=== PATIENT | female | born 1960 | race Caucasian/White ===

== ENCOUNTER 2019-11-28 13:48 | Emergency (ER) | payer MEDICAID, OTHER, SELFPAY ==
[~2019-11-28] VITALS: Ht 162.6 cm; Wt 84.0 kg
--- NOTE | 2019-11-28 14:38 | NUR ---
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
--- NOTE | 2019-11-28 14:56 | NUR ---
placed on monitor, pt A&ox3, speech clear, skin yellow and intact, urine sample @ bedside
[2019-11-28] MEDS ORDERED: SODIUM CHLORIDE FLUSH 10ML SYR IVF ONE (15:30)
[2019-11-28 15:39] LABS: ALANINE AMINOTRANSFERASE 409 U/L (12-78); ALBUMIN 2.3 g/dL (3.4-5.0); ANION GAP 9 mmol/L (5-15); CALCIUM 8.6 mg/dL (8.5-10.1); CHLORIDE 101 mmol/L (98-107)
[2019-11-28 15:52] LABS: ALKALINE PHOSPHATASE 1525 U/L (45-117)
[2019-11-28 15:55] LABS: MEAN CORPUSCULAR HEMOGLOBIN 30.7 pg (27.0-34.8); MEAN CORPUSCULAR HGB CONC 33.3 g/dL (32.4-35.8); MEAN CORPUSCULAR VOLUME 92.2 fL (80-100); MEAN PLATELET VOLUME 10.3 fL (7.4-10.4); PLATELET COUNT 358 x10^3/uL (130-400); RED BLOOD COUNT 4.17 x10^6/uL (3.82-5.3); RED CELL DISTRIBUTION WIDTH 18.4 % (9.6-15.2)
--- NOTE | 2019-11-28 15:55 | NUR ---
URINE SAMPLE SENT, IC STARTED TO LEFT FOREARM, U/S @ BEDSIDE
[2019-11-28 15:56] LABS: CREATININE 0.74 mg/dL (0.55-1.02); MD YES
[2019-11-28 15:57] LABS: TOTAL PROTEIN 6.2 g/dL (6.4-8.2)
[2019-11-28 15:58] LABS: BILIRUBIN,TOTAL 24.7 mg/dL (0.2-1.0)
[2019-11-28 16:05] LABS: INTERNATIONAL NORMALIZED RATIO 1.13 (0.93-1.1)
[2019-11-28 16:18] LABS: MICROSCOPIC INDICATED
[2019-11-28 16:19] LABS: CULTURE INDICATED? YES
[2019-11-28 16:46] LABS: BAND#(MANUAL) 0.21 x10^3/uL; BANDS%(MANUAL) 2 % (0-7); BASOS#(MANUAL) 0.11 x10^3/uL (0-0.1); BASOS% (MANUAL) 1 % (0-1); EOS#(MANUAL) 0.11 x10^3/uL (0.0-0.4); EOS% (MANUAL) 1 % (1-7); LYMPH#(MANUAL) 2.94 x10^3/uL (1-3.4); LYMPHS% (MANUAL) 28 % (22-44); MONOS#(MANUAL) 0.63 x10^3/uL (0.3-2.7); MONOS% (MANUAL) 6 % (2-9); SEG#(MANUAL) 6.51 x10^3/uL (1.8-6.8); SEGS% (MANUAL) 62 % (42-75)
[2019-11-28 16:47] LABS: ANISOCYTOSIS 1+; POLYCHROMASIA 1+
[2019-11-28 16:48] LABS: <PLATELET ESTIMATE> ADEQUATE; <PLT MORPHOLOGY> NORMAL PLT MORPH; TARGET CELLS 1+
[2019-11-28] MEDS ORDERED: OMNIPAQUE 350 MG/ML, 100ML BOTTLE ONE (17:20)
--- NOTE | 2019-11-28 18:34 | NUR ---
DR Cadena @ bedside with pt
[2019-11-28] MEDS ORDERED: POTASSIUM CHLORIDE 20 MEQ TAB.ER.PRT ONE (18:44)
[2019-11-28] MEDS ORDERED: POTASSIUM CHLORIDE 20 MEQ TAB.ER.PRT PO ONE (19:00)
[2019-11-28 19:09] VITALS: BP 119/80
== END 2019-11-28 19:13 | disposition left against medical advice (07) ==
LOC: ED 19:00
DX: N30.00 Acute cystitis without hematuria (principal); R10.12 Left upper quadrant pain; E80.6 Other disorders of bilirubin metabolism; E87.6 Hypokalemia; K83.1 Obstruction of bile duct; F17.200 Nicotine dependence, unspecified, uncomplicated
CPT/HCPCS: 36415; 74177; 76700; 80053; 81001; 83605; 83690; 85025; 85610; 85730; 87077; 87086; 87186; 99285; Q9967

== ENCOUNTER 2019-12-02 11:17 | Inpatient (IN) | payer MEDICAID ==
[~2019-12-02] VITALS: Ht 162.6 cm; Wt 90.1 kg
[2019-12-02 12:06] LABS: MEAN CORPUSCULAR HEMOGLOBIN 31.2 pg (27.0-34.8); MEAN CORPUSCULAR HGB CONC 34.5 g/dL (32.4-35.8); MEAN CORPUSCULAR VOLUME 90.3 fL (80-100); MEAN PLATELET VOLUME 9.9 fL (7.4-10.4); PLATELET COUNT 412 x10^3/uL (130-400); RED BLOOD COUNT 3.99 x10^6/uL (3.82-5.3); RED CELL DISTRIBUTION WIDTH 19.4 % (9.6-15.2)
[2019-12-02 12:08] LABS: MD YES
[2019-12-02 12:14] LABS: ALANINE AMINOTRANSFERASE 338 U/L (12-78); ALBUMIN 2.3 g/dL (3.4-5.0); ANION GAP 11 mmol/L (5-15); CALCIUM 8.5 mg/dL (8.5-10.1); CHLORIDE 96 mmol/L (98-107)
[2019-12-02 12:27] LABS: ALKALINE PHOSPHATASE 1608 U/L (45-117)
[2019-12-02 12:28] LABS: CREATININE 0.73 mg/dL (0.55-1.02)
[2019-12-02 12:34] LABS: BILIRUBIN,TOTAL 28.7 mg/dL (0.2-1.0)
[2019-12-02 12:41] LABS: TOTAL PROTEIN 6.3 g/dL (6.4-8.2)
[2019-12-02 12:45] LABS: MICROSCOPIC INDICATED
[2019-12-02 12:48] LABS: LYMPH#(MANUAL) 1.68 x10^3/uL (1-3.4); LYMPHS% (MANUAL) 20 % (22-44); MONOS#(MANUAL) 0.76 x10^3/uL (0.3-2.7); MONOS% (MANUAL) 9 % (2-9); SEG#(MANUAL) 5.96 x10^3/uL (1.8-6.8); SEGS% (MANUAL) 71 % (42-75)
[2019-12-02 12:48] LABS: CULTURE INDICATED? YES
--- NOTE | 2019-12-02 12:49 | NUR ---
PT AMBULATED TO ROOM 20 PER PEDIS WITH STRONG STEADY GAIT. PT IS A/O X4. PT WAS HERE ON SUNDAY FOR WORK UP DUE TO WAKING UP "YELLOW". PT SKIN AND SCLERA ARE YELLOW. PT WAS INFORMED OF NEEDING TO BE ADMITTED TO RECEIVE A PANCREATIC STENT. PT LEFT AMA DUE TO HAVING THINGS TO DO. PT RETURNS TODAY TO HAVE STENT PLACED. PT AMBULATED TO TO OBTAIN UA, UNABLE TO PRODUCE ENOUGH URINE FOR TRANSFER TO TUBES, SO CUP LABELED AND WALKED TO LAB FOR TESTING. URINE VERY DARK YELLOW. PT STATES "MY STOOLS ARE WHITE, AND MY URINE USUALLY LOOKS LIKE COFFEE". PT C/O RIGHT FLANK AND ABDOMINAL PAIN RATING A 6/10. STATES "IT FEELS LIKE A KIDNEY PROBLEM".
[2019-12-02 12:50] LABS: ANISOCYTOSIS 1+; POLYCHROMASIA 1+
[2019-12-02 12:51] LABS: <PLATELET ESTIMATE> INCREASED; <PLT MORPHOLOGY> NORMAL PLT MORPH; TARGET CELLS 1+
[2019-12-02] MEDS ORDERED: POTASSIUM CHLORIDE 40 MEQ in SODIUM CHLORIDE 0.9% 500 ML IV ONE (13:00)
[2019-12-02] MEDS ORDERED: POTASSIUM CHLORIDE 20 MEQ TAB.ER.PRT PO ONE (13:00)
[2019-12-02] MEDS ORDERED: SODIUM CHLORIDE FLUSH 10ML SYR IVF ONE (13:00)
[2019-12-02] MEDS ORDERED: NITR100C56 PO (13:08)
[2019-12-02] MEDS ORDERED: POTASSIUM CHLORIDE 20 MEQ TAB.ER.PRT ONE (13:21)
--- NOTE | 2019-12-02 13:30 | NUR ---
PT KULDIP RESTING ON GURNEY. NAD NOTED. SKIN JAUNDICED, WARM AND DRY. RESP EVEN AND UNLABORED. PT AWARE THAT SHE IS WAITING FOR ADMISSION. PT ON CONT BP, CARDIAC AND O2 MONITORS. CALL LIGHT WITHIN REACH. WILL CONT TO MONITOR PT.
[2019-12-02] MEDS ORDERED: ONDANSETRON 2MG/ML, 2ML IVPush PRN (14:00)
[2019-12-02] MEDS ORDERED: hydrALAzine 20 MG/ML, 1ML IVPush PRN (14:00)
[2019-12-02] MEDS ORDERED: ONDANSETRON ODT 4 MG PO PRN (14:00)
[2019-12-02] MEDS ORDERED: morphine SULFATE 10 MG/ML, 1ML IVPush PRN (14:00)
[2019-12-02] MEDS ORDERED: BACLOFEN 10 MG TABLET PO PRN (14:00)
[2019-12-02] MEDS ORDERED: HYDROcodone/APAP 5/325 TABLET PO PRN (14:00)
--- NOTE | 2019-12-02 15:07 | NUR ---
PT UP TO RESTROOM. STEADY UPON AMBULATION TO RESTROOM AND BACK TO [facility]. PT AO X 4. SKIN JAUNDICED, WARM AND DRY. PT NSR 70'S ON LAST PICKER. PT ON CONT BP, CARDIAC AND O2 MONITORS. CALL LIGHT WITHIN REACH. WILL CONT TO MONITOR PT.
--- NOTE | 2019-12-02 15:11 | NUR ---
GI procedure already scheduled 11:[address] Lo
--- NOTE | 2019-12-02 15:30 | NUR ---
PT C/O BURNING TO IV SITE. DISCUSSED WITH ERMD AND A SMALL AMOUNT OF NS RUN AT TKO WITH POTASSIUM AND DRIP SLOWED TO 120 CC/HR. PT AO X 4. SKIN JAUNDICED, WARM AND DRY. RESP EVEN AND UNLABORED. CALL LIGHT WITHIN REACH. WILL CONT TO MONITOR PT.
--- NOTE | 2019-12-02 16:09 | NUR ---
PROCEDURE MOVED TO 12/[address] AT [address] BORRERO NOTIFIED.
[2019-12-02] MEDS ORDERED: NS + 20MEQ KCL 1,000 ML IV ONE (17:07)
--- NOTE | 2019-12-02 17:09 | NUR ---
PT UP TO RESTROOM. STEADY UPON AMBULATION TO AND FROM RESTROOM. PT PROVIDED WITH CLEAR LIQUID TRAY. PT AO X 4. SKIN JAUNDICED, WARM AND DRY. RESP EVEN AND UNALBORED. CALL LIGHT WITHIN REACH. WILL CONT TO MOTNIOR PT.
[2019-12-02] MEDS: NS + 20MEQ KCL 1,000 ML IV SCH (17:27)
--- NOTE | 2019-12-02 17:29 | NUR ---
PT PROVIDED WITH CRACKERS PER LUIS GUPTA'S ORDERS. PT ALLOWED TO HAVE CLEAR LIQUIDS AND SALTINES PER DR. GUPTA AND TO NPO AT MIDNIGHT. PT AO X 4. SKIN JAUNDICED WARM AND DRY. RESP EVEN AND UNLABORED. PT ON CONT BP, CARDIAC AND O2 MONITORS. CALL LIGHT WITHIN REACH. WILL CONT TO MONITO RPT.
--- NOTE | 2019-12-02 18:38 | NUR ---
PT UP TO CHAIR SO RN COULD SWITCH PATIENT TO A HOSPITAL BED. PT STATES "IT FEELS SO GOOD TO GET UP." PT BACK IN BED. INSTRUCTIONS ON HOW BED OPERATES. MONITORS REATTACHED. PT ATTEMPTING TO GET SOME SLEEP. PT STATES "I CAN'T WAIT UNTIL TOMORROW SO I CAN HAVE SOME REAL FOOD. CLEAR LIQUIDS IS FOR THE BIRDS." WILL CONTINUE TO MONITOR PATIENT.
--- NOTE | 2019-12-02 19:30 | NUR ---
PT CURRENTLY RESTING ON BOBBY. NAD NOTED. SKIN JAUNDICED, WARM AND DRY. RESP EVEN AND UNLABORED. CALL LIGHT WITHIN REACH. WILL CONT TO MONITOR PT.
[2019-12-02 19:53] LABS: ANION GAP 9 mmol/L (5-15); CALCIUM 8.3 mg/dL (8.5-10.1); CHLORIDE 104 mmol/L (98-107)
[2019-12-02 20:02] LABS: CREATININE 0.71 mg/dL (0.55-1.02)
--- NOTE | 2019-12-02 20:40 | NUR ---
PT UP TO RESTROOM. STEADY UPON AMBULATION TO RESTROOM AND BACK TO [facility]. PT AO X 4. SKIN JAUNDICED, WARM AND DRY. RESP EVEN AND UNLABORED. PT DENIES PAIN/NEEDS AT THIS TIME. PT ON CONT BP, CARDIAC AND O2 MONITORS. CALL LIGHT WITHIN REACH. WILL CONT TO MONITOR PT.
--- NOTE | 2019-12-02 21:44 | NUR ---
REPORT GIVEN TO RN ON MED/TELE. PT CURRENTLY DOZING ON BOBBY. NAD NOTED. SKIN JAUNDICED, WARM AND DRY. RESP EVEN AND UNALBORED.
[2019-12-02 22:24] VITALS: BP 131/70
[2019-12-03 01:00] VITALS: BP 154/68
[2019-12-03] MEDS: NS + 20MEQ KCL 1,000 ML IV SCH ×2 (03:37→16:00)
[2019-12-03 06:43] VITALS: BP 149/84
[2019-12-03] MEDS: BENZONATATE 100 MG CAPSULE PO SCH ×3 (08:57→19:54)
[2019-12-03] MEDS: CEFTRIAXONE PMX 1GM/50ML 50 ML IV SCH (09:13)
[2019-12-03 10:34] LABS: MEAN CORPUSCULAR HEMOGLOBIN 31.3 pg (27.0-34.8); MEAN CORPUSCULAR HGB CONC 34.6 g/dL (32.4-35.8); MEAN CORPUSCULAR VOLUME 90.5 fL (80-100); MEAN PLATELET VOLUME 10.5 fL (7.4-10.4); PLATELET COUNT 346 x10^3/uL (130-400); RED BLOOD COUNT 3.52 x10^6/uL (3.82-5.3); RED CELL DISTRIBUTION WIDTH 18.1 % (9.6-15.2)
[2019-12-03 10:35] LABS: ALANINE AMINOTRANSFERASE 267 U/L (12-78); ANION GAP 9 mmol/L (5-15); CHLORIDE 104 mmol/L (98-107)
[2019-12-03 11:02] LABS: MD YES
[2019-12-03 11:04] LABS: ANISOCYTOSIS 1+; BASOS#(MANUAL) 0.07 x10^3/uL (0-0.1); BASOS% (MANUAL) 1 % (0-1); EOS#(MANUAL) 0.15 x10^3/uL (0.0-0.4); EOS% (MANUAL) 2 % (1-7); LYMPH#(MANUAL) 1.53 x10^3/uL (1-3.4); LYMPHS% (MANUAL) 21 % (22-44); MONOS#(MANUAL) 0.44 x10^3/uL (0.3-2.7); MONOS% (MANUAL) 6 % (2-9); POLYCHROMASIA 1+; SEG#(MANUAL) 5.11 x10^3/uL (1.8-6.8); SEGS% (MANUAL) 70 % (42-75); TARGET CELLS 1+
[2019-12-03 11:05] LABS: <PLATELET ESTIMATE> ADEQUATE; <PLT MORPHOLOGY> NORMAL PLT MORPH
[2019-12-03 11:11] LABS: ALKALINE PHOSPHATASE 1461 U/L (45-117)
[2019-12-03 11:22] LABS: CREATININE 0.59 mg/dL (0.55-1.02)
[2019-12-03 11:23] LABS: BILIRUBIN,TOTAL 25.4 mg/dL (0.2-1.0); TOTAL PROTEIN 5.4 g/dL (6.4-8.2)
[2019-12-03 12:36] VITALS: BP 166/96
[2019-12-03] MEDS ORDERED: MAGNESIUM SULFATE PMX 2GM/50ML 50 ML IV ONE (13:00)
[2019-12-03] MEDS ORDERED: POTASSIUM CHLORIDE 40 MEQ in SODIUM CHLORIDE 0.9% 500 ML IV ONE (13:00)
[2019-12-03] MEDS ORDERED: FENTANYL PF 100 MCG/2ML ONE ×2 (13:27→14:10)
[2019-12-03] MEDS ORDERED: MIDAZOLAM 1 MG/ML, 2ML ONE (13:27)
[2019-12-03] MEDS ORDERED: SUCCINYLCHOLINE 20 MG/ML, 10ML ONE (13:29)
[2019-12-03] MEDS ORDERED: ONDANSETRON 2MG/ML, 2ML ONE (13:29)
[2019-12-03] MEDS ORDERED: PROPOFOL 10 MG/ML, 20ML ONE (13:29)
[2019-12-03] MEDS ORDERED: PIPERACILLIN/TAZO/PMX 3.375GM 50 ML ONE (13:42)
[2019-12-03] MEDS ORDERED: OMNIPAQUE 350 MG/ML, 100ML BOTTLE ONE (19:00)
[2019-12-03 19:18] VITALS: BP 122/69
[2019-12-04 00:58] VITALS: BP 113/65
[2019-12-04] MEDS: NS + 20MEQ KCL 1,000 ML IV SCH (05:56)
[2019-12-04 06:09] LABS: ALBUMIN 1.9 g/dL (3.4-5.0); ANION GAP 8 mmol/L (5-15); CALCIUM 7.8 mg/dL (8.5-10.1); CHLORIDE 106 mmol/L (98-107)
[2019-12-04 06:18] LABS: MEAN CORPUSCULAR HEMOGLOBIN 30.7 pg (27.0-34.8); MEAN CORPUSCULAR HGB CONC 33.9 g/dL (32.4-35.8); MEAN CORPUSCULAR VOLUME 90.5 fL (80-100); MEAN PLATELET VOLUME 10.2 fL (7.4-10.4); PLATELET COUNT 335 x10^3/uL (130-400); RED BLOOD COUNT 3.63 x10^6/uL (3.82-5.3); RED CELL DISTRIBUTION WIDTH 18.7 % (9.6-15.2)
[2019-12-04 06:30] LABS: ALANINE AMINOTRANSFERASE 222 U/L (12-78); ALKALINE PHOSPHATASE 1363 U/L (45-117); BILIRUBIN,TOTAL 14.1 mg/dL (0.2-1.0); CREATININE 0.69 mg/dL (0.55-1.02); TOTAL PROTEIN 5.6 g/dL (6.4-8.2)
[2019-12-04 06:35] VITALS: BP 120/71
[2019-12-04 06:54] LABS: MD YES
[2019-12-04 06:57] LABS: BAND#(MANUAL) 0.52 x10^3/uL; BANDS%(MANUAL) 6 % (0-7); BASOS#(MANUAL) 0.09 x10^3/uL (0-0.1); BASOS% (MANUAL) 1 % (0-1); EOS#(MANUAL) 0.09 x10^3/uL (0.0-0.4); EOS% (MANUAL) 1 % (1-7); LYMPH#(MANUAL) 1.22 x10^3/uL (1-3.4); LYMPHS% (MANUAL) 14 % (22-44); MONOS% (MANUAL) 8 % (2-9); SEG#(MANUAL) 6.09 x10^3/uL (1.8-6.8); SEGS% (MANUAL) 70 % (42-75)
[2019-12-04 06:58] LABS: ANISOCYTOSIS 1+; TARGET CELLS 1+
[2019-12-04 07:00] LABS: <PLATELET ESTIMATE> ADEQUATE; <PLT MORPHOLOGY> NORMAL PLT MORPH; SPHEROCYTES 1+
[2019-12-04] MEDS: BENZONATATE 100 MG CAPSULE PO SCH ×3 (08:52→19:53)
[2019-12-04] MEDS: CEFTRIAXONE PMX 1GM/50ML 50 ML IV SCH (08:52)
[2019-12-04] MEDS ORDERED: OMNIPAQUE 350 MG/ML, 75ML BOTTLE ONE (09:37)
[2019-12-04 11:53] VITALS: BP 131/67
[2019-12-04 14:00] VITALS: BP 145/76
[2019-12-04 20:14] VITALS: BP 152/80
[2019-12-05 01:15] VITALS: BP 153/79
[2019-12-05 06:30] LABS: MEAN CORPUSCULAR HEMOGLOBIN 30.8 pg (27.0-34.8); MEAN CORPUSCULAR HGB CONC 33.7 g/dL (32.4-35.8); MEAN CORPUSCULAR VOLUME 91.2 fL (80-100); PLATELET COUNT 353 x10^3/uL (130-400); RED BLOOD COUNT 3.63 x10^6/uL (3.82-5.3); RED CELL DISTRIBUTION WIDTH 19.4 % (9.6-15.2)
[2019-12-05 06:39] LABS: ALBUMIN 2.1 g/dL (3.4-5.0); ANION GAP 6 mmol/L (5-15); CALCIUM 7.8 mg/dL (8.5-10.1); CHLORIDE 103 mmol/L (98-107)
[2019-12-05 06:55] LABS: ALANINE AMINOTRANSFERASE 183 U/L (12-78); ALKALINE PHOSPHATASE 1268 U/L (45-117); BILIRUBIN,TOTAL 9.7 mg/dL (0.2-1.0); CREATININE 0.49 mg/dL (0.55-1.02); TOTAL PROTEIN 5.9 g/dL (6.4-8.2)
[2019-12-05 07:41] LABS: MD YES
[2019-12-05 07:43] LABS: ANISOCYTOSIS 1+; EOS#(MANUAL) 0.43 x10^3/uL (0.0-0.4); EOS% (MANUAL) 5 % (1-7); LYMPH#(MANUAL) 1.87 x10^3/uL (1-3.4); LYMPHS% (MANUAL) 22 % (22-44); METAMYELOCYTES# (MANUAL) 0.09 x10^3/uL (0-0); METAMYELOCYTES% (MANUAL) 1 % (0-1); MONOS#(MANUAL) 0.43 x10^3/uL (0.3-2.7); MONOS% (MANUAL) 5 % (2-9); SEGS% (MANUAL) 67 % (42-75)
[2019-12-05 07:44] LABS: SPHEROCYTES 1+
[2019-12-05 07:45] LABS: <PLATELET ESTIMATE> ADEQUATE; <PLT MORPHOLOGY> NORMAL PLT MORPH; POLYCHROMASIA 1+; TARGET CELLS 1+
[2019-12-05] MEDS ORDERED: POTASSIUM CHLORIDE 20 MEQ TAB.ER.PRT PO SCH (08:00)
[2019-12-05 08:25] VITALS: BP 137/82
[2019-12-05] MEDS: CEFTRIAXONE PMX 1GM/50ML 50 ML IV SCH (08:47)
[2019-12-05] MEDS: BENZONATATE 100 MG CAPSULE PO SCH (08:48)
[2019-12-05] MEDS ORDERED: MAGNESIUM OXIDE 400 MG TABLET PO SCH (09:00)
[2019-12-05] MEDS ORDERED: METR500T PO (09:16)
[2019-12-05] MEDS ORDERED: CIPR500T3 PO (09:16)
[2019-12-05] MEDS ORDERED: MAGN400T50 PO (09:16)
[2019-12-05] MEDS ORDERED: POTA20TA6 PO (09:16)
[2019-12-05] MEDS ORDERED: CIPROFLOXACIN 500 MG TABLET PO ONE (09:30)
[2019-12-05] MEDS ORDERED: metroNIDAZOLE 500 MG TABLET PO ONE (09:30)
== END 2019-12-05 11:12 | disposition home or self-care (01) | DRG 435 ==
LOC: ED 12:58 → EDIP 13:18 → SUATTDRO 13:44 → 4WST 22:19 → DCLOUNGE 12-05 11:05
PROVIDERS: ADMIT Hospitalist; ATTEND Family Medicine
PROC: 0F798DZ Dilation of Common Bile Duct with Intraluminal Device, Via Natural or Artificial Opening Endoscopic (ICD-10-PCS; 2019-12-03)
PROC: 0DB98ZX Excision of Duodenum, Via Natural or Artificial Opening Endoscopic, Diagnostic (ICD-10-PCS; principal; 2019-12-03 14:00)
DX: C25.0 Malignant neoplasm of head of pancreas (principal); K83.1 Obstruction of bile duct; E46 Unspecified protein-calorie malnutrition; N39.0 Urinary tract infection, site not specified; D64.9 Anemia, unspecified; E83.42 Hypomagnesemia; E87.6 Hypokalemia; F17.210 Nicotine dependence, cigarettes, uncomplicated; F41.9 Anxiety disorder, unspecified; F32.9 Major depressive disorder, single episode, unspecified; D47.3 Essential (hemorrhagic) thrombocythemia; Z83.3 Family history of diabetes mellitus; Z90.711 Acquired absence of uterus with remaining cervical stump; Z88.5 Allergy status to narcotic agent; Z79.899 Other long term (current) drug therapy; Z68.34 Body mass index [BMI] 34.0-34.9, adult
CPT/HCPCS: 36415; 71045; 71260; 74170; 74328; 80048; 80053; 81001; 83690; 83735; 84100; 85025; 86301; 87086; 88172; 88173; 88305; 88307; 93005; 96365; 96366; G0378; J0696; J2250; J2405; J2543; J2704; J3010; J3480; Q9967; C1769; C1894; C2625; J0330; J3475; J7040

== ENCOUNTER 2020-02-02 07:07 | Inpatient (IN) | payer MEDICAID ==
[~2020-02-02] VITALS: Ht 162.6 cm; Wt 73.4 kg
[~2020-02-02 07:07] MED LIST: CIPR500T3 PO; MAGN400T50 PO; METR500T PO; NITR100C56 PO; POTA20TA6 PO
[2020-02-02] MEDS ORDERED: ONDANSETRON 2MG/ML, 2ML ONE (07:21)
[2020-02-02] MEDS ORDERED: MORPHINE SULFATE 4 MG/ML, 1ML ONE (07:22)
[2020-02-02] MEDS ORDERED: FAMOTIDINE 20 MG/2 ML ONE (07:22)
[2020-02-02 07:28] LABS: MEAN CORPUSCULAR HEMOGLOBIN 31.2 pg (27.0-34.8); MEAN CORPUSCULAR HGB CONC 33.4 g/dL (32.4-35.8); MEAN CORPUSCULAR VOLUME 93.6 fL (80-100); PLATELET COUNT 367 x10^3/uL (130-400); RED BLOOD COUNT 4.22 x10^6/uL (3.82-5.3); RED CELL DISTRIBUTION WIDTH 13.4 % (9.6-15.2)
[2020-02-02] MEDS ORDERED: MORPHINE SULFATE 4 MG/ML, 1ML IVPush PRN (07:30)
[2020-02-02] MEDS ORDERED: FAMOTIDINE 20 MG/2 ML IV ONE (07:30)
[2020-02-02] MEDS ORDERED: ONDANSETRON 2MG/ML, 2ML IVPush ONE (07:30)
[2020-02-02] MEDS ORDERED: PLEASE ENTER HEIGHT AND WEIGHT MC SCH (07:30)
[2020-02-02] MEDS ORDERED: SODIUM CHLORIDE FLUSH 10ML SYR IVF ONE (07:30)
[2020-02-02 07:39] LABS: ALANINE AMINOTRANSFERASE 302 U/L (12-78); ANION GAP 8 mmol/L (5-15); CALCIUM 9.2 mg/dL (8.5-10.1); CHLORIDE 100 mmol/L (98-107); CREATININE 0.86 mg/dL (0.55-1.02)
--- NOTE | 2020-02-02 07:41 | NUR ---
ericka. report received from ems. pt c/o r/l uq abd pain with n/v since 11pm last night. hx of pancreatic ca and stent placed. denies cp/sob/cough. pt's aox4. resps even and unlabored. bp/spo2 monitors in place. call light within reach. pa at bedside to evaluate at this time.
--- NOTE | 2020-02-02 07:42 | NUR ---
pt medicated per emar. pt tolerated well. 2l oxy placed d/t low spo2. spo2 is 91-93% at this time.
--- NOTE | 2020-02-02 07:43 | NUR ---
pt refused straight cath at this time. pt states"i will go to br after i feel better." pa notified.
[2020-02-02] MEDS ORDERED: FURO-93 PO (07:46)
[2020-02-02] MEDS ORDERED: TRAZ-175 PO (07:47)
[2020-02-02 07:53] LABS: ALKALINE PHOSPHATASE 1052 U/L (45-117); BILIRUBIN,TOTAL 3.2 mg/dL (0.2-1.0); TOTAL PROTEIN 7.6 g/dL (6.4-8.2)
[2020-02-02 07:57] LABS: MD YES
[2020-02-02 08:00] LABS: BAND#(MANUAL) 2.77 x10^3/uL; BANDS%(MANUAL) 21 % (0-7); LYMPH#(MANUAL) 0.53 x10^3/uL (1-3.4); LYMPHS% (MANUAL) 4 % (22-44); MONOS#(MANUAL) 0.13 x10^3/uL (0.3-2.7); MONOS% (MANUAL) 1 % (2-9); SEG#(MANUAL) 9.77 x10^3/uL (1.8-6.8); SEGS% (MANUAL) 74 % (42-75)
[2020-02-02 08:04] LABS: <PLATELET ESTIMATE> ADEQUATE; <PLT MORPHOLOGY> NORMAL PLT MORPH; <RBC MORPHOLOGY> NORMAL
--- NOTE | 2020-02-02 08:18 | NUR ---
PT SLEEPING IN [facility]. RESPS EVEN AND UNLABORED. BP/SPO2 MONITORS IN PLACE. CALL LIGHT WITHIN REACH. RAILS UP X2.
--- NOTE | 2020-02-02 08:32 | NUR ---
pt to ct at this time.
--- NOTE | 2020-02-02 08:46 | NUR ---
pt back to room from ct at this time.
[2020-02-02] MEDS ORDERED: OMNIPAQUE 350 MG/ML, 100ML BOTTLE ONE (08:50)
--- NOTE | 2020-02-02 09:07 | NUR ---
pt straight cath'd using sterile technique. pt tolerated well. this rn walked to lab.
[2020-02-02 09:17] LABS: MICROSCOPIC AUTO
[2020-02-02 09:21] LABS: CULTURE INDICATED? NO
--- NOTE | 2020-02-02 09:45 | NUR ---
BED JARVIS PLACED PER REQUEST.
--- NOTE | 2020-02-02 10:19 | NUR ---
MEDICATION ORDERED FROM PHARMACY AT THIS TIME.
[2020-02-02] MEDS ORDERED: hydrALAzine 20 MG/ML, 1ML IVPush PRN (10:30)
[2020-02-02] MEDS ORDERED: KETOROLAC 30 MG/1 ML IV PRN (10:30)
[2020-02-02] MEDS ORDERED: PROMETHAZINE 25 MG/ML, 1ML IM PRN (10:30)
[2020-02-02] MEDS ORDERED: BACLOFEN 10 MG TABLET PO PRN (10:30)
[2020-02-02] MEDS ORDERED: PIPERACILLIN/TAZO/PMX 4.5GM 100 ML IV SCH (10:30)
[2020-02-02] MEDS ORDERED: SODIUM CHLORIDE 0.9% 1,000ML IVBOLUS ONE (10:30)
[2020-02-02] MEDS ORDERED: HYDROmorphone 2 MG/ML, 1ML IVPush PRN (10:30)
[2020-02-02] MEDS ORDERED: ONDANSETRON 2MG/ML, 2ML IVPush PRN (10:30)
[2020-02-02] MEDS ORDERED: ONDANSETRON ODT 4 MG PO PRN (10:30)
--- NOTE | 2020-02-02 10:40 | NUR ---
REPORT GIVEN TO MADELAINE COLE. ALL QUESTIONS ANSWERED.
--- NOTE | 2020-02-02 10:43 | NUR ---
abx and ns infusing at this time after blood culture x 2. pt tolerated well.
[2020-02-02 12:27] VITALS: BP 145/83
[2020-02-02] MEDS ORDERED: ACETAMINOPHEN 500 MG TABLET ONE (12:38)
[2020-02-02] MEDS ORDERED: ACETAMINOPHEN 500 MG TABLET PO PRN (13:00)
[2020-02-02] MEDS ORDERED: IBUPROFEN 600 MG TABLET ONE (15:11)
[2020-02-02] MEDS ORDERED: IBUPROFEN 200 MG TABLET PO ONE (15:30)
[2020-02-02] MEDS: PIPERACILLIN/TAZO/PMX 4.5GM 100 ML IV SCH ×2 (15:49→21:57)
[2020-02-02 20:02] VITALS: BP 139/78
[2020-02-03 01:04] VITALS: BP 132/71
[2020-02-03] MEDS: PIPERACILLIN/TAZO/PMX 4.5GM 100 ML IV SCH ×4 (04:17→22:03)
[2020-02-03 05:03] LABS: MEAN CORPUSCULAR HEMOGLOBIN 30.9 pg (27.0-34.8); MEAN CORPUSCULAR HGB CONC 33.4 g/dL (32.4-35.8); MEAN CORPUSCULAR VOLUME 92.6 fL (80-100); MEAN PLATELET VOLUME 8.8 fL (7.4-10.4); PLATELET COUNT 187 x10^3/uL (130-400); RED BLOOD COUNT 3.87 x10^6/uL (3.82-5.3); RED CELL DISTRIBUTION WIDTH 13.9 % (9.6-15.2)
[2020-02-03 05:12] LABS: ALANINE AMINOTRANSFERASE 251 U/L (12-78); ALBUMIN 2.3 g/dL (3.4-5.0); ANION GAP 4 mmol/L (5-15); CALCIUM 8.2 mg/dL (8.5-10.1); CHLORIDE 104 mmol/L (98-107); CREATININE 0.91 mg/dL (0.55-1.02)
[2020-02-03 05:14] LABS: ALKALINE PHOSPHATASE 824 U/L (45-117); BILIRUBIN,TOTAL 3.3 mg/dL (0.2-1.0); TOTAL PROTEIN 6.7 g/dL (6.4-8.2)
[2020-02-03 06:00] LABS: MD YES
[2020-02-03 06:01] LABS: EOS#(MANUAL) 0.14 x10^3/uL (0.0-0.4); EOS% (MANUAL) 1 % (1-7); METAMYELOCYTES# (MANUAL) 0.27 x10^3/uL (0-0); METAMYELOCYTES% (MANUAL) 2 % (0-1); MONOS#(MANUAL) 0.41 x10^3/uL (0.3-2.7); MONOS% (MANUAL) 3 % (2-9)
[2020-02-03 06:02] LABS: <RBC MORPHOLOGY> NORMAL; BAND#(MANUAL) 3.01 x10^3/uL; BANDS%(MANUAL) 22 % (0-7); LYMPH#(MANUAL) 1.37 x10^3/uL (1-3.4); LYMPHS% (MANUAL) 10 % (22-44); SEG#(MANUAL) 8.49 x10^3/uL (1.8-6.8); SEGS% (MANUAL) 62 % (42-75)
[2020-02-03 06:03] LABS: <PLATELET ESTIMATE> ADEQUATE; <PLT MORPHOLOGY> NORMAL PLT MORPH; PMNS WITH VACUOLES 1+
[2020-02-03 07:52] VITALS: BP 92/60
[2020-02-03] MEDS: OXYcodone IR 5MG TABLET PO PRN (08:13)
[2020-02-03] MEDS ORDERED: POTASSIUM CHLORIDE 40 MEQ in SODIUM CHLORIDE 0.9% 500 ML IV ONE (08:30)
[2020-02-03] MEDS ORDERED: CHLORHEXIDINE 15 ML UDC ONE (14:01)
[2020-02-03] MEDS ORDERED: PROPOFOL 10 MG/ML, 20ML ONE (14:32)
[2020-02-03] MEDS ORDERED: ROCURONIUM 10MG/ML,5ML ONE (14:32)
[2020-02-03] MEDS ORDERED: ONDANSETRON 2MG/ML, 2ML ONE (14:32)
[2020-02-03] MEDS ORDERED: LIDOCAINE-MPF 2% ,5ML ONE (14:32)
[2020-02-03] MEDS ORDERED: CEFAZOLIN 1,000 MG ONE (14:32)
[2020-02-03] MEDS ORDERED: FENTANYL PF 100 MCG/2ML ONE ×2 (14:32→14:57)
[2020-02-03] MEDS ORDERED: NEOSTIGMINE 1 MG/ML, 10ML ONE (14:32)
[2020-02-03] MEDS ORDERED: GLYCOPYRROLATE 0.2MG/1ML, 5ML ONE (14:32)
[2020-02-03] MEDS ORDERED: SUCCINYLCHOLINE 20 MG/ML, 10ML ONE (14:32)
[2020-02-03] MEDS ORDERED: DEXAMETHASONE 4 MG/ML, 1ML ONE (14:32)
[2020-02-03] MEDS ORDERED: PHENYLEPHRINE 10 MG/ML ONE (14:40)
[2020-02-03] MEDS ORDERED: ONDANSETRON ODT 8 MG PO PRN (15:00)
[2020-02-03] MEDS ORDERED: FENTANYL PF 100 MCG/2ML IV PRN (15:00)
[2020-02-03] MEDS ORDERED: HYDROmorphone 2 MG/ML, 1ML IVPush PRN (15:00)
[2020-02-03] MEDS ORDERED: ACETAMINOPHEN 325 MG TABLET PO PRN (15:00)
[2020-02-03] MEDS ORDERED: ONDANSETRON 2MG/ML, 2ML IV PRN (15:00)
[2020-02-03] MEDS ORDERED: LORazepam 2 MG/ML, 1ML IVPush PRN (15:00)
[2020-02-03] MEDS ORDERED: PROMETHAZINE 25 MG SUPP PR PRN (15:00)
[2020-02-03] MEDS ORDERED: PROMETHAZINE 12.5 MG SUPP PR PRN (15:00)
[2020-02-03] MEDS ORDERED: OXYcodone 5 MG/5 ML ORAL.SOL UDC PO PRN (15:00)
[2020-02-03] MEDS ORDERED: PROMETHAZINE 25 MG/ML, 1ML IV PRN (15:00)
[2020-02-03] MEDS: OMEPRAZOLE 20 MG CAPSULE.DR PO SCH (16:11)
[2020-02-03 17:23] LABS: ALANINE AMINOTRANSFERASE 201 U/L (12-78); ALBUMIN 2.2 g/dL (3.4-5.0); ANION GAP 8 mmol/L (5-15); CALCIUM 8.5 mg/dL (8.5-10.1); CHLORIDE 105 mmol/L (98-107); CREATININE 0.81 mg/dL (0.55-1.02)
[2020-02-03 17:25] LABS: ALKALINE PHOSPHATASE 733 U/L (45-117); BILIRUBIN,TOTAL 1.5 mg/dL (0.2-1.0); TOTAL PROTEIN 6.5 g/dL (6.4-8.2)
[2020-02-03] MEDS ORDERED: VANCOMYCIN PER PHARMACY MC PRN (17:30)
[2020-02-03] MEDS ORDERED: PHARMACOKINETIC CONSULTATION MC ONE (18:00)
[2020-02-03] MEDS ORDERED: PHARMACOKINETIC MONITORING MC PRN (18:00)
[2020-02-03] MEDS ORDERED: VANCOMYCIN 1,800 MG in SODIUM CHLORIDE 0.9% 250 ML IV ONE (18:30)
[2020-02-03 19:46] VITALS: BP 112/77
[2020-02-04 01:10] VITALS: BP 94/58
[2020-02-04] MEDS: PIPERACILLIN/TAZO/PMX 4.5GM 100 ML IV SCH ×4 (04:52→22:08)
[2020-02-04] MEDS: OMEPRAZOLE 20 MG CAPSULE.DR PO SCH ×2 (04:52→16:16)
[2020-02-04 05:37] LABS: MEAN CORPUSCULAR HEMOGLOBIN 30.8 pg (27.0-34.8); MEAN CORPUSCULAR HGB CONC 32.6 g/dL (32.4-35.8); MEAN CORPUSCULAR VOLUME 94.3 fL (80-100); MEAN PLATELET VOLUME 9.1 fL (7.4-10.4); PLATELET COUNT 216 x10^3/uL (130-400); RED BLOOD COUNT 3.77 x10^6/uL (3.82-5.3); RED CELL DISTRIBUTION WIDTH 14.1 % (9.6-15.2)
[2020-02-04 05:50] LABS: CHLORIDE 105 mmol/L (98-107)
[2020-02-04 05:55] LABS: ALANINE AMINOTRANSFERASE 161 U/L (12-78); ALBUMIN 2.1 g/dL (3.4-5.0); ALKALINE PHOSPHATASE 652 U/L (45-117); ANION GAP 7 mmol/L (5-15); CALCIUM 8.8 mg/dL (8.5-10.1); CREATININE 0.79 mg/dL (0.55-1.02); TOTAL PROTEIN 6.6 g/dL (6.4-8.2)
[2020-02-04] MEDS: VANCOMYCIN 1,400 MG in SODIUM CHLORIDE 0.9% 250 ML IV SCH ×2 (06:22→20:01)
[2020-02-04 06:51] LABS: MD YES
[2020-02-04 06:54] LABS: <RBC MORPHOLOGY> NORMAL; BAND#(MANUAL) 1.41 x10^3/uL; BANDS%(MANUAL) 10 % (0-7); LYMPH#(MANUAL) 1.55 x10^3/uL (1-3.4); LYMPHS% (MANUAL) 11 % (22-44); METAMYELOCYTES# (MANUAL) 0.28 x10^3/uL (0-0); METAMYELOCYTES% (MANUAL) 2 % (0-1); MONOS#(MANUAL) 0.56 x10^3/uL (0.3-2.7); MONOS% (MANUAL) 4 % (2-9); SEG#(MANUAL) 10.29 x10^3/uL (1.8-6.8); SEGS% (MANUAL) 73 % (42-75)
[2020-02-04 06:55] LABS: <PLATELET ESTIMATE> ADEQUATE; <PLT MORPHOLOGY> NORMAL PLT MORPH
[2020-02-04 07:34] VITALS: BP 92/60
[2020-02-04 13:40] VITALS: BP 98/60
[2020-02-04] MEDS: OXYcodone IR 5MG TABLET PO PRN ×2 (18:10→22:08)
[2020-02-04 19:17] VITALS: BP 104/66
[2020-02-04] MEDS: ACETAMINOPHEN 325 MG TABLET PO PRN (20:01)
[2020-02-05 00:53] VITALS: BP 97/62
[2020-02-05] MEDS: PIPERACILLIN/TAZO/PMX 4.5GM 100 ML IV SCH (04:01)
[2020-02-05] MEDS ORDERED: DIPHENHYDRAMINE 25 MG CAPSULE PO ONE (04:30)
[2020-02-05] MEDS: OMEPRAZOLE 20 MG CAPSULE.DR PO SCH ×2 (06:04→16:04)
[2020-02-05 06:55] LABS: MEAN CORPUSCULAR HEMOGLOBIN 29.9 pg (27.0-34.8); MEAN CORPUSCULAR HGB CONC 32.2 g/dL (32.4-35.8); MEAN CORPUSCULAR VOLUME 92.9 fL (80-100); MEAN PLATELET VOLUME 9.6 fL (7.4-10.4); PLATELET COUNT 226 x10^3/uL (130-400); RED BLOOD COUNT 3.74 x10^6/uL (3.82-5.3); RED CELL DISTRIBUTION WIDTH 13.9 % (9.6-15.2)
[2020-02-05 07:03] LABS: ALBUMIN 2.2 g/dL (3.4-5.0); ANION GAP 8 mmol/L (5-15); CALCIUM 8.2 mg/dL (8.5-10.1); CHLORIDE 102 mmol/L (98-107)
[2020-02-05 07:06] LABS: ALANINE AMINOTRANSFERASE 106 U/L (12-78); ALKALINE PHOSPHATASE 544 U/L (45-117); BILIRUBIN,TOTAL 0.9 mg/dL (0.2-1.0); CREATININE 0.68 mg/dL (0.55-1.02); TOTAL PROTEIN 6.3 g/dL (6.4-8.2)
[2020-02-05 07:08] VITALS: BP 149/74
[2020-02-05] MEDS: ACETAMINOPHEN 325 MG TABLET PO PRN ×2 (07:17→18:57)
[2020-02-05] MEDS: VANCOMYCIN 1,400 MG in SODIUM CHLORIDE 0.9% 250 ML IV SCH (07:27)
[2020-02-05 07:50] LABS: MD YES
[2020-02-05 07:57] LABS: <RBC MORPHOLOGY> NORMAL; BANDS%(MANUAL) 8 % (0-7); LYMPHS% (MANUAL) 20 % (22-44); MONOS#(MANUAL) 0.38 x10^3/uL (0.3-2.7); MONOS% (MANUAL) 3 % (2-9); SEG#(MANUAL) 8.63 x10^3/uL (1.8-6.8); SEGS% (MANUAL) 69 % (42-75)
[2020-02-05 07:58] LABS: <PLATELET ESTIMATE> ADEQUATE; <PLT MORPHOLOGY> NORMAL PLT MORPH
[2020-02-05] MEDS: AMPICILLIN/SULBACTAM 3 GM in SODIUM CHLORIDE 0.9% 100 ML IV SCH ×3 (09:50→21:23)
[2020-02-05] MEDS ORDERED: OMNIPAQUE 350 MG/ML, 75ML BOTTLE ONE (10:38)
[2020-02-05 13:01] VITALS: BP 134/82
[2020-02-05] MEDS ORDERED: ENOXAPARIN 40 MG/0.4 ML ONE (15:01)
[2020-02-05] MEDS: ENOXAPARIN 40 MG/0.4 ML SQ SCH (15:12)
[2020-02-05] MEDS: POTASSIUM CHLORIDE 20 MEQ TAB.ER.PRT PO SCH (16:04)
[2020-02-05 19:25] VITALS: BP 134/78
[2020-02-05] MEDS ORDERED: DIPHENHYDRAMINE 25 MG CAPSULE PO PRN (20:00)
[2020-02-05] MEDS ORDERED: DIPHENHYDRAMINE 50 MG CAPSULE ONE (20:03)
[2020-02-06 00:19] VITALS: BP 143/85
[2020-02-06] MEDS: AMPICILLIN/SULBACTAM 3 GM in SODIUM CHLORIDE 0.9% 100 ML IV SCH ×4 (03:10→22:01)
[2020-02-06 06:01] LABS: CHLORIDE 104 mmol/L (98-107)
[2020-02-06 06:04] LABS: BASOPHILS # (AUTO) 0.04 x10^3/uL (0-0.1); BASOPHILS % (AUTO) 1 % (0-1); EOSINOPHILS # (AUTO) 0.14 x10^3/uL (0-0.4); EOSINOPHILS % (AUTO) 2 % (1-7); LYMPHOCYTES # (AUTO) 2.66 x10^3/uL (1-3.4); LYMPHOCYTES % (AUTO) 30 % (22-44); MD NO; MEAN CORPUSCULAR HEMOGLOBIN 30.6 pg (27.0-34.8); MEAN CORPUSCULAR HGB CONC 32.7 g/dL (32.4-35.8); MEAN CORPUSCULAR VOLUME 93.6 fL (80-100); MEAN PLATELET VOLUME 9.4 fL (7.4-10.4); MONOCYTES # (AUTO) 0.91 x10^3/uL (0.2-0.8); MONOCYTES % (AUTO) 10 % (2-9); NEUTROPHILS # (AUTO) 5.17 x10^3/uL (1.8-6.8); NEUTROPHILS % (AUTO) 58 % (42-75); PLATELET COUNT 230 x10^3/uL (130-400); RED BLOOD COUNT 3.89 x10^6/uL (3.82-5.3); RED CELL DISTRIBUTION WIDTH 14.1 % (9.6-15.2)
[2020-02-06 06:06] LABS: ALANINE AMINOTRANSFERASE 78 U/L (12-78); ALBUMIN 2.1 g/dL (3.4-5.0); ALKALINE PHOSPHATASE 519 U/L (45-117); ANION GAP 8 mmol/L (5-15); BILIRUBIN,TOTAL 0.7 mg/dL (0.2-1.0); CALCIUM 8.2 mg/dL (8.5-10.1); CREATININE 0.67 mg/dL (0.55-1.02); TOTAL PROTEIN 6.6 g/dL (6.4-8.2)
[2020-02-06] MEDS: OMEPRAZOLE 20 MG CAPSULE.DR PO SCH ×2 (06:16→15:33)
[2020-02-06] MEDS: POTASSIUM CHLORIDE 20 MEQ TAB.ER.PRT PO SCH ×2 (07:24→15:33)
[2020-02-06 07:25] VITALS: BP 154/83
[2020-02-06] MEDS ORDERED: POTASSIUM CHLORIDE 40 MEQ in SODIUM CHLORIDE 0.9% 500 ML IV ONE (09:00)
[2020-02-06 12:24] VITALS: BP 146/89
[2020-02-06] MEDS: MAGNESIUM SULFATE 6 GM in SODIUM CHLORIDE 0.9% 250 ML IV ONE ×2 (13:49→13:50)
[2020-02-06] MEDS: ENOXAPARIN 40 MG/0.4 ML SQ SCH (15:35)
[2020-02-06 19:06] VITALS: BP 138/80
[2020-02-06] MEDS: OXYcodone IR 5MG TABLET PO PRN (20:24)
[2020-02-07 01:32] VITALS: BP 130/76
[2020-02-07] MEDS: AMPICILLIN/SULBACTAM 3 GM in SODIUM CHLORIDE 0.9% 100 ML IV SCH ×2 (03:44→09:22)
[2020-02-07 05:17] LABS: ALBUMIN 2.3 g/dL (3.4-5.0); ANION GAP 7 mmol/L (5-15); CALCIUM 8.4 mg/dL (8.5-10.1); CHLORIDE 105 mmol/L (98-107)
[2020-02-07 05:18] LABS: MEAN CORPUSCULAR HGB CONC 33.2 g/dL (32.4-35.8); MEAN CORPUSCULAR VOLUME 93.6 fL (80-100); MEAN PLATELET VOLUME 8.9 fL (7.4-10.4); PLATELET COUNT 268 x10^3/uL (130-400); RED BLOOD COUNT 4.07 x10^6/uL (3.82-5.3); RED CELL DISTRIBUTION WIDTH 14.3 % (9.6-15.2)
[2020-02-07 05:21] LABS: ALANINE AMINOTRANSFERASE 62 U/L (12-78); ALKALINE PHOSPHATASE 521 U/L (45-117); BILIRUBIN,TOTAL 0.6 mg/dL (0.2-1.0); CREATININE 0.57 mg/dL (0.55-1.02); TOTAL PROTEIN 6.9 g/dL (6.4-8.2)
[2020-02-07] MEDS: OMEPRAZOLE 20 MG CAPSULE.DR PO SCH (05:33)
[2020-02-07 06:03] LABS: BASOPHILS # (AUTO) 0.04 x10^3/uL (0-0.1); BASOPHILS % (AUTO) 0 % (0-1); EOSINOPHILS # (AUTO) 0.25 x10^3/uL (0-0.4); EOSINOPHILS % (AUTO) 2 % (1-7); LYMPHOCYTES # (AUTO) 2.82 x10^3/uL (1-3.4); LYMPHOCYTES % (AUTO) 23 % (22-44); MD SCAN; MONOCYTES # (AUTO) 1.09 x10^3/uL (0.2-0.8); MONOCYTES % (AUTO) 9 % (2-9); NEUTROPHILS # (AUTO) 7.92 x10^3/uL (1.8-6.8); NEUTROPHILS % (AUTO) 65 % (42-75)
[2020-02-07 06:49] VITALS: BP 148/91
[2020-02-07] MEDS: POTASSIUM CHLORIDE 20 MEQ TAB.ER.PRT PO SCH ×2 (09:00→09:23)
[2020-02-07] MEDS ORDERED: AMOX1TAB64 PO (10:06)
[2020-02-07] MEDS ORDERED: OMEP-110 PO (10:06)
[2020-02-07] MEDS ORDERED: MAGN400T26 PO (10:07)
== END 2020-02-07 11:21 | disposition home or self-care (01) | DRG 919 ==
LOC: ED 07:27 → 4WST 12:12
PROVIDERS: ADMIT Hospitalist; ATTEND Internal Medicine
PROC: 0FPB8DZ Removal of Intraluminal Device from Hepatobiliary Duct, Via Natural or Artificial Opening Endoscopic (ICD-10-PCS; 2020-02-03)
PROC: BF101ZZ Fluoroscopy of Bile Ducts using Low Osmolar Contrast (ICD-10-PCS; 2020-02-03)
PROC: 0DB68ZX Excision of Stomach, Via Natural or Artificial Opening Endoscopic, Diagnostic (ICD-10-PCS; 2020-02-03)
PROC: 0F798DZ Dilation of Common Bile Duct with Intraluminal Device, Via Natural or Artificial Opening Endoscopic (ICD-10-PCS; principal; 2020-02-03 16:00)
DX: T85.590A Other mechanical complication of bile duct prosthesis, initial encounter (principal); A41.81 Sepsis due to Enterococcus; G93.41 Metabolic encephalopathy; K83.1 Obstruction of bile duct; A41.51 Sepsis due to Escherichia coli [E. coli]; C25.9 Malignant neoplasm of pancreas, unspecified; K83.09 Other cholangitis; B96.1 Klebsiella pneumoniae [K. pneumoniae] as the cause of diseases classified elsewhere; E83.42 Hypomagnesemia; E11.65 Type 2 diabetes mellitus with hyperglycemia; E87.5 Hyperkalemia; E87.6 Hypokalemia; F17.210 Nicotine dependence, cigarettes, uncomplicated; F41.9 Anxiety disorder, unspecified; K25.9 Gastric ulcer, unspecified as acute or chronic, without hemorrhage or perforation; F32.9 Major depressive disorder, single episode, unspecified; R94.5 Abnormal results of liver function studies; K57.30 Diverticulosis of large intestine without perforation or abscess without bleeding; Y83.8 Other surgical procedures as the cause of abnormal reaction of the patient, or of later complication, without mention of misadventure at the time of the procedure; Z83.3 Family history of diabetes mellitus; Z85.07 Personal history of malignant neoplasm of pancreas; Z90.711 Acquired absence of uterus with remaining cervical stump; Y92.098 Other place in other non-institutional residence as the place of occurrence of the external cause; Z79.84 Long term (current) use of oral hypoglycemic drugs
CPT/HCPCS: 36415; 74328; 96374; 96375; 99285; J3490; 71260; 74177; 80053; 81001; 83036; 83605; 83690; 83735; 85025; 87040; 87077; 87186; 88305; G0378; J0295; J0690; J1100; J1650; J2405; J2543; J2704; J2710; J3010; J3370; J3475; J3480; Q9967; C1769; C1894; C2625; J0330; J2270; J2370; J7030; J7040; J7050; Q0163